=== PATIENT | female | born 1960 | race Caucasian/White ===

== ENCOUNTER 2020-11-16 13:02 | Emergency (ER) | payer BC ==
[~2020-11-16] VITALS: Ht 162.6 cm; Wt 113.4 kg
== END 2020-11-16 15:15 | disposition home or self-care (01) ==
LOC: ER 13:02
DX: M79.662 Pain in left lower leg (principal); I10 Essential (primary) hypertension; J44.9 Chronic obstructive pulmonary disease, unspecified
CPT/HCPCS: 93971; 99283-25